=== PATIENT | female | born 1990 | race Caucasian/White ===

== ENCOUNTER → 2017-04-24 | Outpatient (CLI) | payer OTHER ==
[~2017-04-24] MED LIST: CYCL5TAB PO; NORG1TAB6 PO
== END | disposition home or self-care (01) ==
LOC: STAR 14:27
PROVIDERS: ATTEND Orthopaedic Surgery
DX: Z02.9 Encounter for administrative examinations, unspecified (principal)

== ENCOUNTER 2017-04-30 12:55 | Day surgery (SDC) | payer OTHER ==
[~2017-04-30] VITALS: Ht 167.6 cm; Wt 65.8 kg
[2017-04-30] MEDS ORDERED: LACTATED RINGERS 1,000 ML IV SCH (13:46)
[2017-04-30] MEDS ORDERED: PHEN15CA2 PO (13:47)
[2017-04-30 13:51] LABS: HCG UR LOT HCG7030192
[2017-04-30] MEDS ORDERED: LIDOCAINE 1%, 2ML SQ PRN (14:00)
[2017-04-30 14:24] LABS: HCG UR OBC PASS
[2017-04-30] MEDS ORDERED: MIDAZOLAM 1 MG/ML, 2ML ONE (15:40)
[2017-04-30] MEDS ORDERED: FENTANYL PF 250 MCG/5ML ONE (15:40)
[2017-04-30] MEDS ORDERED: LIDOCAINE/PF 1%, 30ML ONE (15:59)
[2017-04-30] MEDS ORDERED: EPINEPHRINE 1 MG/ML, 1ML ONE (15:59)
[2017-04-30] MEDS ORDERED: SCOPOLAMINE PATCH, 1.5MG PATCH.TD72 TD ONE ×2 (16:02)
[2017-04-30] MEDS ORDERED: ROPIvacaine/PF 0.5%, 30 ML ONE (16:03)
[2017-04-30] MEDS ORDERED: LIDOCAINE 1%-EPI 1:100K, 30ML IM ONE (16:59)
[2017-04-30] MEDS ORDERED: ONDANSETRON 2MG/ML, 2ML ONE (17:45)
[2017-04-30] MEDS ORDERED: CEFAZOLIN 1,000 MG ONE ×2 (17:45)
[2017-04-30] MEDS ORDERED: PROPOFOL 10 MG/ML, 20ML ONE (17:45)
[2017-04-30] MEDS ORDERED: DEXAMETHASONE 4 MG/ML, 1ML ONE (17:45)
[2017-04-30] MEDS ORDERED: METOPROLOL 1 MG/ML, 5ML IV PRN (18:00)
[2017-04-30] MEDS ORDERED: HYDROmorphone 1 MG/ML, 1ML IV PRN (18:00)
[2017-04-30] MEDS ORDERED: PROMETHAZINE 25 MG/ML, 1ML IV PRN (18:00)
[2017-04-30] MEDS ORDERED: ALBUTEROL SULFATE 2.5 MG/3 ML NPPB PRN (18:00)
[2017-04-30] MEDS ORDERED: MEPERIDINE/PF 25MG/0.5ML IVPush PRN (18:00)
[2017-04-30] MEDS ORDERED: hydrALAzine 20 MG/ML, 1ML IV PRN (18:00)
[2017-04-30] MEDS ORDERED: OXYcodone 5 MG/5 ML ORAL.SOL UDC PO PRN (18:00)
[2017-04-30] MEDS ORDERED: LORazepam 2 MG/ML, 1ML IVPush PRN (18:00)
[2017-04-30] MEDS ORDERED: ACETAMINOPHEN 325 MG TABLET PO PRN ×2 (18:00→21:00)
[2017-04-30] MEDS ORDERED: PROMETHAZINE 25 MG/ML, 1ML ONE (18:22)
[2017-04-30] MEDS ORDERED: ACETAMINOPHEN 650 MG/20.3 ML UDC ONE (18:46)
[2017-04-30] MEDS ORDERED: OXYcodone 5 MG/5 ML ORAL.SOL UDC ONE ×2 (18:46→19:02)
[2017-04-30] MEDS ORDERED: FENTANYL PF 100 MCG/2ML ONE (19:02)
[2017-04-30] MEDS: FENTANYL PF 100 MCG/2ML IV PRN ×2 (19:06→19:16)
[2017-04-30] MEDS ORDERED: OXYcodone/APAP 5/325MG TABLET PO PRN (21:00)
[2017-04-30] MEDS ORDERED: PROMETHAZINE 25 MG/ML, 1ML IM PRN (21:00)
[2017-04-30] MEDS ORDERED: ONDANSETRON 2MG/ML, 2ML IV PRN (21:00)
[2017-04-30] MEDS ORDERED: morphine SULFATE 10 MG/ML, 1ML IV PRN (21:00)
[2017-04-30] MEDS ORDERED: KETOROLAC 30 MG/1 ML IV SCH (21:00)
[2017-05-01] MEDS ORDERED: HYDROmorphone 1 MG/ML, 1ML ONE (03:43)
== END 2017-04-30 21:40 | disposition home or self-care (01) ==
LOC: OUT 12:55 → 4NOR 19:50 → OUT 21:40
PROVIDERS: ATTEND Orthopaedic Surgery
DX: M21.861 Other specified acquired deformities of right lower leg (principal); M65.861 Other synovitis and tenosynovitis, right lower leg
CPT/HCPCS: 27415; 29875; 81025; C1762; J0171; J0690; J1100; J2250; J2405; J2550; J2704; J2795; J3010; J3490; J7120; J1170